=== PATIENT | female | born 1985 | race Two or more races ===

== ENCOUNTER 2017-06-17 16:16 | Emergency (ER) | payer MEDICAID ==
[~2017-06-17] VITALS: Ht 147.3 cm; Wt 59.9 kg
[2017-06-17 16:50] VITALS: BP 111/71
== END 2017-06-17 18:15 | disposition home or self-care (01) ==
LOC: ER 16:25
DX: S92.512A Displaced fracture of proximal phalanx of left lesser toe(s), initial encounter for closed fracture (principal); W01.0XXA Fall on same level from slipping, tripping and stumbling without subsequent striking against object, initial encounter; Y93.89 Activity, other specified; Y92.89 Other specified places as the place of occurrence of the external cause; Y99.8 Other external cause status
CPT/HCPCS: 73630

== ENCOUNTER 2018-09-23 11:28 | Emergency (ER) | payer MEDICAID ==
[~2018-09-23] VITALS: Ht 149.9 cm; Wt 59.0 kg
[2018-09-23 13:24] VITALS: BP 124/79
== END 2018-09-23 13:43 | disposition home or self-care (01) ==
LOC: ER 11:31
DX: S46.811A Strain of other muscles, fascia and tendons at shoulder and upper arm level, right arm, initial encounter (principal); X50.9XXA Other and unspecified overexertion or strenuous movements or postures, initial encounter; Y93.89 Activity, other specified; Y92.89 Other specified places as the place of occurrence of the external cause; Y99.8 Other external cause status